=== PATIENT | female | born 1990 | race Caucasian/White ===

== ENCOUNTER 2017-05-02 08:31 | Outpatient (CLI) | payer BC ==
--- NOTE | 2017-05-02 10:10 | RAD ---
LUMBAR SPINE TWO VIEWS: History: Low back pain. Prior fracture. FINDINGS: No comparison. There are five lumbar type vertebrae. Pedicles are intact. Incomplete posterior effusi on is apparent at the S1 level on the frontal view. Vertebral body height and alignment are maintained. Mild osteophytosis is present throughout the vert ebral bodies and facets. A well corticated triangular fragment at the anterior superior margin of the L4 vertebral body has th e appearance of limbus vertebrae but may reflect the historically stated L4 fracture. Oblique lucency overlies the lower facets at the L5 level and could reflect spondylolysis. Alignment is maintained a t this level. IMPRESSION: Chronic type findings as detailed above. No acute osseous abnormalities are demonstrated. POS: [facility]
== END 2017-05-02 08:32 | disposition home or self-care (01) ==
LOC: TBSIIMAG 08:31
PROVIDERS: ATTEND Neurological Surgery
DX: S22.008D Other fracture of unspecified thoracic vertebra, subsequent encounter for fracture with routine healing (principal)
CPT/HCPCS: 72100

== ENCOUNTER 2017-05-09 10:04 | Outpatient (CLI) | payer BC ==
--- NOTE | 2017-05-09 13:23 | MRI ---
MRI OF THE LUMBAR SPINE WITHOUT CONTRAST: HISTORY: Low back pain. History of thoracolumbar fracture. COMPARISON: None. TECHNIQUE: Multiplanar, multisequence MR images were obtained of the lumbar spine without contrast. FINDINGS: The vertebral bodies and intervertebral disks demonstrate normal height and alignment without fractur e or subluxation. No significant disk desiccation is seen. The conus medullaris terminates normally at L1. The prevertebral and paraspinal soft tissues are unremarkable. L1-L2: A minimal disk osteophyte complex is seen. No posterior facet arthrosis. No neural foramina l or central canal stenosis. L2-L3: Unremarkable. L3-L4: Unremarkable. L4-L5: Unremarkable. L5-S1: No significant bulge or protrusion. Mild bilateral posterior facet arthrosis. No neural for aminal or central canal stenosis. IMPRESSION: Minimal degenerative changes of the lumbar spine, as above. POS: [facility]
== END 2017-05-09 10:05 | disposition home or self-care (01) ==
LOC: TBSIIMAG 10:04
PROVIDERS: ATTEND Neurological Surgery
DX: Z87.81 Personal history of (healed) traumatic fracture (principal); M47.896 Other spondylosis, lumbar region
CPT/HCPCS: 72148

== ENCOUNTER 2017-07-10 13:04 | Outpatient (CLI) | payer BC ==
--- NOTE | 2017-07-10 16:30 | RAD ---
TWO VIEWS LUMBAR SPINE: HISTORY: Followup L4 fracture. COMPARISON: 05/02/17. FINDINGS: Stable fracture involving the anterior superior L4 vertebral body. No significant change in vertebra l body height. Stable irregularity involving the superior end plate of L2. IMPRESSION: Stable changes at L2 and L4. POS: [facility]
== END 2017-07-10 13:05 | disposition home or self-care (01) ==
LOC: TBSIIMAG 13:04
PROVIDERS: ATTEND Neurological Surgery
DX: S22.008A Other fracture of unspecified thoracic vertebra, initial encounter for closed fracture (principal)
CPT/HCPCS: 72100